=== PATIENT | male | born 1965 | race American Indian/Alaskan Native ===

== ENCOUNTER 2017-10-23 01:35 | Emergency (ER) | payer SELFPAY ==
[2017-10-23 02:35] LABS: Basophils % (Auto) 0.9 % (0.0-1.8); Eosinophils # (Auto) 0.1 K/mm3 (0.0-0.4); Eosinophils % (Auto) 1.9 % (0.0-4.3); Hematocrit 35.4 % (35.5-45.6); Hemoglobin 11.6 gm/dl (11.8-15.2); Lymphocytes # (Auto) 2.6 K/mm3 (1.2-5.4); Lymphocytes % (Auto) 50.4 % (13.4-35.0); Mean Corpuscular HGB Conc 33 % (32-34); Mean Corpuscular Volume 79 fl (84-94); Monocytes # (Auto) 0.5 K/mm3 (0.0-0.8); Monocytes % (Auto) 9.9 % (0.0-7.3); Platelet Count 179 K/mm3 (140-440); Red Cell Distribution Width 15.5 % (13.2-15.2)
[2017-10-23 02:37] LABS: Mean Corpuscular Hemoglobin 26 pg (28-32)
[2017-10-23 02:54] LABS: BUN/Creatinine Ratio 19; Blood Urea Nitrogen 15 mg/dL (9-20); Calcium 8.6 mg/dL (8.4-10.2); Hemolysis Index 20
[2017-10-23 03:35] LABS: Amphetamine Screen,Urine PRESUMPTIVE NEGATIVE; Benzodiazepines Screen,Urine PRESUMPTIVE NEGATIVE; Cannabinoid Screen,Urine PRESUMPTIVE NEGATIVE; Methadone Screen,Urine PRESUMPTIVE NEGATIVE; Opiate Screen,Urine PRESUMPTIVE NEGATIVE
[2017-10-23 03:38] LABS: Bilirubin,Urine NEG (Negative); Blood,Urine NEG (Negative); Color,Urine Yellow (Yellow); Mucus,Urine FEW /HPF; Nitrite,Urine NEG (Negative); Protein,Urine <15 mg/dL mg/dL (Negative)
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
[2017-10-23] MEDS ORDERED: ATIVAN IM PRN (03:47)
[2017-10-23] MEDS ORDERED: HALDOL IM PRN (03:47)
[2017-10-23] MEDS ORDERED: BENADRYL IM PRN (03:47)
[2017-10-23 04:00] LABS: Cocaine Screen,Urine PRESUMPTIVE POSITIVE
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
--- NOTE | 2017-10-24 12:02 | Progress Note ---
Subjective - Reason for Consult Consult date: 10/24/17 Reason for consult: Psychiatry Follow-up - Chief Complaint Chief complaint: "What" 52-year-old male presented with a chief complaint combative behavior. The patient was brought in by [facility] police after damaging property at a restaurant. Today the patient is agitated with psychosis during the assessment. He is disorganized and tangent (word salad) during the interview. This patient is poor historian at this time. Mental Status Exam - Vital signs Last Vital Signs Temp 98.5 F 10/23/17 08:13 Pulse 66 10/23/17 08:13 Resp 18 10/23/17 08:13 BP 117/79 10/23/17 08:13 Pulse Ox 100 10/23/17 08:13 - Exam Narrative exam: MSE: Appearance: disheveled Behavior: regular eye contact Speech: regular rate and tone Mood: agitated Affect: congruent to mood Thought Process: tangential (word salad) Thought Content: no gestures of SI/HI's and AVH's, disorganized Motor Activity: ambulatory Cognition: alert Insight: limited Judgment: limited Assessment and Plan Impression: Hx of Schizophrenia. Substance Use DO (cocaine). Today the patient is agitated with psychosis during the assessment. DDx: R/O Bipolar DO, R/O Substance Induced Psychosis Recommendation/Plan: Continue 1013 with placement to inpatient psy services. Start Risperdal 1 mg PO HS for psychosis.
--- NOTE | 2017-10-24 12:05 | Progress Note ---
Subjective - Reason for Consult Consult date: 10/24/17 Reason for consult: Psychiatry Follow-up - Chief Complaint Chief complaint: minimal response. Mental Status Exam - Vital signs Last Vital Signs Temp 98.5 F 10/23/17 08:13 Pulse 66 10/23/17 08:13 Resp 18 10/23/17 08:13 BP 117/79 10/23/17 08:13 Pulse Ox 100 10/23/17 08:13 - Exam Narrative exam: MSE: Appearance: calm, cooperative Behavior: regular eye contact Speech: regular rate and tone Mood: "depressed" sad Affect: congruent to mood Thought Process: unable t Thought Content: no gestures of SI/HI's and AVH's Motor Activity: ambulatory Cognition: Alert Insight: poor Judgment: poor
[2017-10-24] MEDS: RisperDAL PO SCH (22:07)
--- NOTE | 2017-10-25 15:35 | Progress Note ---
Subjective - Reason for Consult Consult date: 10/25/17 Reason for consult: Psychiatry Follow-up - Chief Complaint Chief complaint: "I am here" 52-year-old male presented with a chief complaint combative behavior. The patient was brought in by [facility] police after damaging property at a restaurant. Today is calm, but disorganized during the assessment. He had to be redirected several times to keep him on topic. He denies any side effects of his medication. Mental Status Exam - Vital signs Last Vital Signs Temp 97.5 F L 10/25/17 09:14 Pulse 71 10/25/17 09:14 Resp 15 10/25/17 09:14 BP 110/81 10/25/17 09:14 Pulse Ox 100 10/25/17 09:14 - Exam Narrative exam: MSE: Appearance: disheveled Behavior: regular eye contact Speech: regular rate and tone Mood: "okay" Affect: congruent to mood Thought Process: tangential (word salad) Thought Content: denies SI/HI's and AVH's, disorganized Motor Activity: ambulatory Cognition: A/O x3 Insight: poor Judgment: poor Assessment and Plan Impression: Hx of Schizophrenia. Substance Use DO (cocaine). Today is calm, but disorganized during the assessment. DDx: R/O Bipolar DO, R/O Substance Induced Psychosis Recommendation/Plan: Continue 1013 with placement to [facility] pending a transport time. Continue Risperdal 1 mg PO HS for psychosis.
[2017-10-25] MEDS: RisperDAL PO SCH (22:08)
[2017-10-26 20:45] VITALS: BP 132/70
== END 2017-10-26 20:58 ==
LOC: EEVIPCON 01:35 → ED 01:35
DX: F29 Unspecified psychosis not due to a substance or known physiological condition (principal)
CPT/HCPCS: 36415; 80048; 80307; 81001; 85025; 99285; G0480; 80320